=== PATIENT | female | born 1995 | race Two or more races ===

== ENCOUNTER 2021-09-29 15:15 | Emergency (ER) | payer OTHER ==
[~2021-09-29] VITALS: Ht 170.2 cm; Wt 49.9 kg
[2021-09-29 16:34] VITALS: BP 136/91
[2021-09-29] MEDS ORDERED: HYDR28.32 TP (17:46)
--- NOTE | 2021-09-29 17:55 | NUR ---
Patient discharged to home in stable condition. Written and verbal after care instructions given. Patient verbalizes understanding of instruction.
== END 2021-09-29 17:55 | disposition home or self-care (01) ==
LOC: ER 15:33
DX: R21 Rash and other nonspecific skin eruption (principal); Z86.16 Personal history of COVID-19; Z79.899 Other long term (current) drug therapy